=== PATIENT | male | born 1955 | race Two or more races ===

== ENCOUNTER 2019-12-29 10:31 | Emergency (ER) | payer SELFPAY ==
[~2019-12-29] VITALS: Ht 162.6 cm; Wt 64.0 kg
[2019-12-29] MEDS ORDERED: LORAZEPAM 2MG/ML CPJ IM STA (10:52)
[2019-12-29] MEDS ORDERED: HALOPERIDOL LACTATE 5MG/ML VIAL IM ONE (11:00)
[2019-12-29 11:05] LABS: EOSINOPHILS % 11.8 % (0.0-5.0); HEMATOCRIT. 39.9 % (42.0-52.0); HEMOGLOBIN. 13.4 g/dL (14.0-18.0); LYMPHOCYTES % 22.1 % (20.0-50.0); MEAN CORPUSCULAR HEMOGLOBIN 33.7 pg (28.0-32.0); MEAN CORPUSCULAR VOLUME 100.1 fL (80.0-94.0); MEAN PLATELET VOLUME 7.7 fl (7.4-10.4); MONOCYTES % 11.9 % (2.0-8.0); NEUTROPHILS % 53.2 % (40.0-76.0); PLATELET 274 x1000/uL (130-400); RED BLOOD CELL COUNT 3.98 mill/uL (4.7-6.1); RED CELL DISTRIBUTION WIDTH 14.8 % (11.6-14.6)
[2019-12-29 11:13] LABS: CHLORIDE 106 mEq/L (98-107)
[2019-12-29 11:17] LABS: ETHANOL BLOOD < 10 mg/dL
[2019-12-29 12:05] LABS: COLOR URINE YELLOW (YELLOW); KETONES URINE NEGATIVE (NEGATIVE); LEUKOCYTE ESTERASE URINE NEGATIVE (NEGATIVE); NITRITE URINE NEGATIVE (NEGATIVE); OCCULT BLOOD URINE NEGATIVE (NEGATIVE); PH URINE 5.5 (4.5-8.0); PROTEIN URINE TRACE (NEGATIVE); SPECIFIC GRAVITY URINE 1.017 (1.005-1.030); UROBILINOGEN URINE 0.2 E.U./dL (0.2-1.0)
[2019-12-29 12:09] LABS: CLARITY URINE CLEAR (CLEAR)
[2019-12-29 12:31] LABS: *BARBITURATES SCREEN URINE NEGATIVE (NEGATIVE)
[2019-12-29 12:32] LABS: *BENZODIAZEPINES SCREEN URINE NEGATIVE (NEGATIVE); *COCAINE SCREEN URINE PRESUMTIVE POSITIVE (NEGATIVE); METHADONE URINE SCREEN NEGATIVE (NEGATIVE); OPIATES URINE SCREEN NEGATIVE (NEGATIVE); PHENCYCLIDINE URINE SCREEN NEGATIVE (NEGATIVE)
[2019-12-29 12:34] LABS: *AMPHETAMINES SCREEN URINE NEGATIVE (NEGATIVE); CANNABINOID URINE SCREEN PRESUMTIVE POSITIVE (NEGATIVE)
[2019-12-29] MEDS ORDERED: LORAZEPAM 2MG/ML CPJ ONE (14:19)
[2019-12-30 08:30] VITALS: BP 117/78
== END 2019-12-30 09:07 | disposition home or self-care (01) ==
LOC: ER 10:31 → EDBD 10:31 → ER 12-30 09:07
DX: F19.10 Other psychoactive substance abuse, uncomplicated (principal); F10.229 Alcohol dependence with intoxication, unspecified; Y90.0 Blood alcohol level of less than 20 mg/100 ml
CPT/HCPCS: 36415; 80053; 80305; 80320; 81003; 85025; 96372; 99285; J1630; J2060; G0480